=== PATIENT | male | born 1995 | race Caucasian/White ===

== ENCOUNTER 2020-04-05 14:08 | Observation (INO) | payer BC ==
[2020-04-05 14:42] LABS: CHLORIDE,CL 104 mEq/L (98-106); SODIUM,NA 141 mEq/L (136-145)
[2020-04-05] MEDS ORDERED: Lactated Ringers 1,000 ML IV ONE (15:00)
[2020-04-05] MEDS ORDERED: metroNIDAZOLE/Normal Saline 500 MG in Premix Bag 1 BAG IV ONE (15:15)
[2020-04-05] MEDS ORDERED: Iopamidol 755 Mg/ML 100 ML Bottle IVPUSH ONE (15:27)
[2020-04-05] MEDS ORDERED: Barium Sulfate Oral Susp 450 ML Bottle PO ONE ×2 (15:27)
[2020-04-05] MEDS ORDERED: Pantoprazole 40 MG Vial IVPUSH SCH ×2 (16:00→20:15)
[2020-04-05] MEDS ORDERED: cefTRIAXone 1 GM Vial IVPUSH ONE (16:53)
[2020-04-05] MEDS ORDERED: Ondansetron 4 MG/2 ML SDV IV PRN (20:04)
[2020-04-05] MEDS ORDERED: traMADol 50 MG Tab PO PRN (20:13)
[2020-04-05] MEDS: Nicotine 14 MG/24 Hr Patch TRDERM SCH (21:21)
[2020-04-05] MEDS: Lactated Ringers 1,000 ML IV SCH (21:21)
[2020-04-05] MEDS: Pantoprazole 40 MG Vial IVPUSH SCH (23:16)
[2020-04-06] MEDS: Lactated Ringers 1,000 ML IV SCH (06:32)
[2020-04-06 06:37] VITALS: BP 115/62
[2020-04-06 08:06] LABS: CHLORIDE,CL 106 mEq/L (98-106); SODIUM,NA 141 mEq/L (136-145)
--- NOTE | 2020-04-06 08:22 | PCM.DCSUM1 ---
Discharge Summary - Discharge Data Discharge Date: 04/06/20 Discharge Disposition: Home, Self-Care 01 Condition: Good - Referral to Home Health Primary Care Physician: PCP None - Discharge Diagnosis/Problem(s) (1) Hepatitis SNOMED Code(s): 915977726 ICD Code: K75.9 - INFLAMMATORY LIVER DISEASE, UNSPECIFIED Status: Acute (2) GERD (gastroesophageal reflux disease) SNOMED Code(s): 320556411 ICD Code: K21.9 - GASTRO-ESOPHAGEAL REFLUX DISEASE WITHOUT ESOPHAGITIS Status: Acute Qualifiers: Esophagitis presence: with esophagitis Qualified Code(s): K21.0 - Gastro-esophageal reflux disease with esophagitis - Patient Summary/Data Hospital Course: Rashaun is a 24 yo male who was admitted observation status for hematemesis and hepatitis. Presented to the clinic 04/05/2020 with c/o vomiting up blood. Reported he had been having maroon colored vomit for the past week. Had some abdominal tenderness on exam but no significant abdominal pain. Had decreased appetite and nausea for the past week as well. Lab workup revealed significantly elevated liver enzymes with ALT 2769, ALT 1043, and bilirubin of 6.8. Had CT of his abdomen/pelvis which did not have significant findings. Had mild amount of periportal edema, but otherwise negative. Hemoglobin was stable at 15.8. [facility] recommended serial hemoglobin and hepatitis workup. Patient had serial hemoglobins overnight which remained stable. Dropped from 15.8 to 14.4, likely dilutional. Patient had no further hematemesis during observation stay. Liver enzymes did improve overnight with ALT 2093, AST 750, and Bilirubin 5.2. VS remained stable. Hepatitis workup completed and pending at time of discharge. Patient will be discharged home on Protonix and carafate. He is advised to refrain from acetaminophen and NSAID use. Will give him Tramadol for pain, as he has been having ongoing back pain. Xray did reveal age indeterminant compression fracture of T8. He is advised to follow up in 1 week. Will repeat liver enzymes at that time and arrange for GI consultation once hepatitis panel is back. Patient tolerated general diet prior to discharge. Discharged home in satisfactory condition. - Patient Instructions Diet: Usual Diet as Tolerated, Drink 8-10+ Glasses/Day, No Alcoholic Beverages Activity: As Tolerated Notify Provider of: Fever, Increased Pain, Nausea and/or Vomiting - Discharge Plan *PRESCRIPTION DRUG MONITORING PROGRAM REVIEWED*: Yes *COPY OF PRESCRIPTION DRUG MONITORING REPORT IN PATIENT DIPTI: Yes Prescriptions/Med Rec: Sucralfate [Carafate] 1 gm PO QIDACANDBED 30 Days #120 tablet Pantoprazole Sodium [Protonix] 40 mg PO DAILY #30 tablet. traMADol [Ultram] 50 mg PO Q8H PRN #20 tablet PRN Reason: Pain Home Medications: Home Meds Pantoprazole Sodium [Protonix] 40 mg PO DAILY #30 tablet. 04/06/20 [Rx] Sucralfate [Carafate] 1 gm PO QIDACANDBED 30 Days #120 tablet 04/06/20 [Rx] traMADol [Ultram] 50 mg PO Q8H PRN #20 tablet 04/06/20 [Rx] Patient Handouts: Food Choices for Gastroesophageal Reflux Disease, Adult, Gastroesophageal Reflux Disease, Adult, [id number] - Discharge Summary/Plan Comment DC Time >30 min.: No - General Info Date of Service: 04/06/20 Admission Dx/Problem (Free Text: Hepatitis Hematemesis Functional Status: Reports: Pain Controlled, Tolerating Diet, Ambulating, Urinating. Denies: New Symptoms - Review of Systems General: Denies: Fever, Fatigue, Chills Pulmonary: Reports: No Symptoms Cardiovascular: Reports: No Symptoms Gastrointestinal: Reports: Abdominal Pain, Decreased Appetite, Nausea. Denies: Diarrhea, Hematochezia, Melena, Vomiting Genitourinary: Reports: No Symptoms Musculoskeletal: Reports: No Symptoms Skin: Reports: No Symptoms Neurological: Reports: No Symptoms Psychiatric: Reports: No Symptoms - Patient Data Vitals - Most Recent: Last Vital Signs Temp 98.4 F 04/06/20 04:00 Pulse 62 04/06/20 04:00 Resp 20 04/06/20 04:00 BP 115/62 04/06/20 04:00 Pulse Ox 97 04/06/20 04:00 Weight - Most Recent: 275 lb I&O - Last 24 hours: Intake & Output 04/05/20 04/06/20 04/06/20 22:59 06:59 14:59 Intake Total 300 918 Balance 300 918 Lab Results - Last 24 hrs: Laboratory Results - last 24 hr 04/05/20 04/05/20 04/05/20 Range/Units 00:00 14:19 14:19 WBC 8.0 (5.0-10.0) 10^3/uL RBC 5.27 (4.50-6.00) 10^6/uL Hgb 14.5 15.8 (14.0-18.0) g/dL Hct 42.0 45.6 (40.0-54.0) % MCV 86.5 (82.0-94.0) fL MCH 30.0 (27.0-32.0) pg MCHC 34.6 (33.0-38.0) g/dL RDW Coeff of Shahrzad 13.8 (11.0-15.0) % Plt Count 228 (150-400) 10^3/uL Neut % (Auto) 51.6 (35-85) % Lymph % (Auto) 37.3 (10-55) % [place] % (Auto) 8.3 (0-16) % Eos % (Auto) 2.1 (0-5) % Baso % (Auto) 0.7 (0-3) % Neut # (Auto) 4.14 (1.80-7.00) 10^3/uL Lymph # (Auto) 3.00 (1.00-4.80) 10^3/uL [place] # (Auto) 0.67 (0.00-0.80) 10^3/uL Eos # (Auto) 0.17 (0.00-0.45) 10^3/uL Baso # (Auto) 0.06 10^3/uL PT (9.7-12.3) SEC INR (0.92-1.18) Sodium 141 (136-145) mEq/L Potassium 4.0 (3.5-5.0) mEq/L Chloride 104 (98-106) mEq/L Carbon Dioxide 28 (21-32) mmol/L BUN 12 (7-18) mg/dL Creatinine 1.1 (0.7-1.3) mg/dL Est Cr Clr Drug Dosing TNP Estimated GFR (MDRD) > 60 (>=60) mL/min Glucose 100 H (75-99) mg/dL Calcium 8.9 (8.4-10.1) mg/dL Total Bilirubin 6.7 H (0.0-1.0) mg/dL AST 1043 H* (15-37) U/L ALT 2769 H* (12-78) U/L Alkaline Phosphatase 128 H (46-116) U/L C-Reactive Protein 1.5 H (0.2-0.8) mg/dL Total Protein 7.3 (6.4-8.2) g/dL Albumin 3.8 (3.4-5.0) g/dL Amylase 39 (25-115) U/L Lipase 101 (73-393) U/L Urine Color (YELLOW) Urine Appearance (CLEAR) Urine pH (4.5-8.0) Ur Specific [place] (1.003-1.020) Urine Protein (NEGATIVE) mg/dL Urine Glucose (UA) (NEGATIVE) mg/dL Urine Ketones (NEGATIVE) mg/dL Urine Occult Blood (NEGATIVE) Urine Nitrite (NEGATIVE) Urine Bilirubin (NEGATIVE) Urine Urobilinogen (0.2-1.0) EU/dL Ur Leukocyte Esterase (NEGATIVE) Urine RBC (0-5) /HPF Urine WBC (0-5) /HPF Ur Epithelial Cells (NOT SEEN) /HPF Amorphous Sediment (NOT SEEN) /HPF Urine Mucus (NOT SEEN) /HPF 04/05/20 04/05/20 04/05/20 Range/Units 14:19 18:38 18:38 WBC (5.0-10.0) 10^3/uL RBC (4.50-6.00) 10^6/uL Hgb 14.5 (14.0-18.0) g/dL Hct (40.0-54.0) % MCV (82.0-94.0) fL MCH (27.0-32.0) pg MCHC (33.0-38.0) g/dL RDW Coeff of Shahrzad (11.0-15.0) % Plt Count (150-400) 10^3/uL Neut % (Auto) (35-85) % Lymph % (Auto) (10-55) % [place] % (Auto) (0-16) % Eos % (Auto) (0-5) % Baso % (Auto) (0-3) % Neut # (Auto) (1.80-7.00) 10^3/uL Lymph # (Auto) (1.00-4.80) 10^3/uL [place] # (Auto) (0.00-0.80) 10^3/uL Eos # (Auto) (0.00-0.45) 10^3/uL Baso # (Auto) 10^3/uL PT 12.0 (9.7-12.3) SEC INR 1.19 H (0.92-1.18) Sodium (136-145) mEq/L Potassium (3.5-5.0) mEq/L Chloride (98-106) mEq/L Carbon Dioxide (21-32) mmol/L BUN (7-18) mg/dL Creatinine (0.7-1.3) mg/dL Est Cr Clr Drug Dosing Estimated GFR (MDRD) (>=60) mL/min Glucose (75-99) mg/dL Calcium (8.4-10.1) mg/dL Total Bilirubin (0.0-1.0) mg/dL AST (15-37) U/L ALT (12-78) U/L Alkaline Phosphatase (46-116) U/L C-Reactive Protein (0.2-0.8) mg/dL Total Protein (6.4-8.2) g/dL Albumin (3.4-5.0) g/dL Amylase (25-115) U/L Lipase (73-393) U/L Urine Color Dark yellow (YELLOW) Urine Appearance Clear (CLEAR) Urine pH 5.0 (4.5-8.0) Ur Specific [place] 1.025 H (1.003-1.020) Urine Protein Trace H (NEGATIVE) mg/dL Urine Glucose (UA) 100 H (NEGATIVE) mg/dL Urine Ketones 15 H (NEGATIVE) mg/dL Urine Occult Blood Negative (NEGATIVE) Urine Nitrite Negative (NEGATIVE) Urine Bilirubin Large H (NEGATIVE) Urine Urobilinogen >=8.0 H (0.2-1.0) EU/dL Ur Leukocyte Esterase Negative (NEGATIVE) Urine RBC Not seen (0-5) /HPF Urine WBC Not seen (0-5) /HPF Ur Epithelial Cells Occasional H (NOT SEEN) /HPF Amorphous Sediment Few H (NOT SEEN) /HPF Urine Mucus Occasional H (NOT SEEN) /HPF 04/06/20 04/06/20 04/06/20 Range/Units 05:11 05:11 05:11 WBC 6.3 (5.0-10.0) 10^3/uL RBC 4.90 (4.50-6.00) 10^6/uL Hgb 14.4 (14.0-18.0) g/dL Hct 43.1 (40.0-54.0) % MCV 88.0 (82.0-94.0) fL MCH 29.4 (27.0-32.0) pg MCHC 33.4 (33.0-38.0) g/dL RDW Coeff of Shahrzad 14.1 (11.0-15.0) % Plt Count 206 (150-400) 10^3/uL Neut % (Auto) 47.9 (35-85) % Lymph % (Auto) 35.5 (10-55) % [place] % (Auto) 11.9 (0-16) % Eos % (Auto) 4.1 (0-5) % Baso % (Auto) 0.6 (0-3) % Neut # (Auto) 3.02 (1.80-7.00) 10^3/uL Lymph # (Auto) 2.24 (1.00-4.80) 10^3/uL [place] # (Auto) 0.75 (0.00-0.80) 10^3/uL Eos # (Auto) 0.26 (0.00-0.45) 10^3/uL Baso # (Auto) 0.04 10^3/uL PT 11.7 (9.7-12.3) SEC INR 1.16 (0.92-1.18) Sodium 141 (136-145) mEq/L Potassium 3.8 (3.5-5.0) mEq/L Chloride 106 (98-106) mEq/L Carbon Dioxide 27 (21-32) mmol/L BUN 8 (7-18) mg/dL Creatinine 1.0 (0.7-1.3) mg/dL Est Cr Clr Drug Dosing 139.84 Estimated GFR (MDRD) > 60 (>=60) mL/min Glucose 95 (75-99) mg/dL Calcium 8.2 L (8.4-10.1) mg/dL Total Bilirubin 5.2 H (0.0-1.0) mg/dL AST 750 H* (15-37) U/L ALT 2093 H* (12-78) U/L Alkaline Phosphatase 107 (46-116) U/L C-Reactive Protein 1.2 H (0.2-0.8) mg/dL Total Protein 6.1 L (6.4-8.2) g/dL Albumin 3.0 L (3.4-5.0) g/dL Amylase (25-115) U/L Lipase (73-393) U/L Urine Color (YELLOW) Urine Appearance (CLEAR) Urine pH (4.5-8.0) Ur Specific [place] (1.003-1.020) Urine Protein (NEGATIVE) mg/dL Urine Glucose (UA) (NEGATIVE) mg/dL Urine Ketones (NEGATIVE) mg/dL Urine Occult Blood (NEGATIVE) Urine Nitrite (NEGATIVE) Urine Bilirubin (NEGATIVE) Urine Urobilinogen (0.2-1.0) EU/dL Ur Leukocyte Esterase (NEGATIVE) Urine RBC (0-5) /HPF Urine WBC (0-5) /HPF Ur Epithelial Cells (NOT SEEN) /HPF Amorphous Sediment (NOT SEEN) /HPF Urine Mucus (NOT SEEN) /HPF Med Orders - Current: Current Medications Lactated Ringer's (Ringers, Lactated) 1,000 mls @ 100 mls/hr IV ASDIRECTED [facility] Last Admin: 04/06/20 06:32 Dose: 100 mls/hr Documented by: Nicotine (Habitrol) 14 mg TRDERM DAILY [facility] Last Admin: 04/05/20 21:21 Dose: Not Given Documented by: Ondansetron HCl (Zofran) 4 mg IV Q6H PRN PRN Reason: Nausea/Vomiting Pantoprazole Sodium (Protonix Iv) 40 mg IVPUSH BID [facility] Last Admin: 04/05/20 23:16 Dose: 40 mg Documented by: Tramadol HCl (Ultram) 50 mg PO Q8H PRN PRN Reason: Pain Last Admin: 04/05/20 21:19 Dose: 50 mg Documented by: Discontinued Medications Barium Sulfate (Readi-Cat 2) 450 ml PO ONETIME ONE Stop: 04/05/20 15:28 Last Admin: 04/05/20 15:56 Dose: Not Given Documented by: Barium Sulfate (Readi-Cat 2) 900 ml PO ONETIME ONE Stop: 04/05/20 15:28 Last Admin: 04/05/20 17:34 Dose: 900 ml Documented by: Ceftriaxone Sodium (Rocephin) 1 gm IVPUSH ONETIME ONE Stop: 04/05/20 16:54 Last Admin: 04/05/20 17:01 Dose: 1 gm Documented by: Lactated Ringer's (Ringers, Lactated) 1,000 mls @ 999 mls/hr IV ONETIME ONE Stop: 04/05/20 16:00 Last Infusion: 04/05/20 15:13 Dose: 500 mls/hr Documented by: Metronidazole 500 mg/ Premix 100 mls @ 100 mls/hr IV ONETIME ONE Stop: 04/05/20 16:14 Last Admin: 04/05/20 15:31 Dose: 100 mls/hr Documented by: Iopamidol ([id number] (76%)) 100 ml IVPUSH ONETIME ONE Stop: 04/05/20 15:28 Last Admin: 04/05/20 17:33 Dose: 100 ml Documented by: Pantoprazole Sodium (Protonix Iv) 40 mg IVPUSH Q24H [facility] Last Admin: 04/05/20 15:31 Dose: 40 mg Documented by: Pantoprazole Sodium (Protonix Iv) 40 mg IVPUSH Q12H [facility] Last Admin: 04/05/20 23:35 Dose: Not Given Documented by: - Exam General: Reports: Alert, Oriented, No Acute Distress Neck: Reports: Supple Lungs: Reports: Clear to Auscultation, Normal Respiratory Effort Cardiovascular: Reports: Regular Rate, Regular Rhythm GI/Abdominal Exam: Normal Bowel Sounds, Soft, Non-Tender, No Organomegaly, No Distention. No: Guarding, Rigid, Rebound, Hepatomegaly Extremities: Normal Inspection, Normal Range of Motion, Non-Tender, No Pedal Edema, Normal Capillary Refill Skin: Reports: Other (jaundice) Neurological: Reports: No New Focal Deficit Psy/Mental Status: Reports: Alert, Normal Affect, Normal Mood *Q Meaningful Use (DIS) - VTE *Q VTE Anticoagulation Contraindications: Med/TX Not Indicated/Need
[2020-04-06] MEDS: Pantoprazole 40 MG Vial IVPUSH SCH (08:26)
[2020-04-06] MEDS: Nicotine 14 MG/24 Hr Patch TRDERM SCH (08:26)
[2020-04-06 08:38] VITALS: PULSE 55
== END 2020-04-06 09:15 | disposition home or self-care (01) ==
LOC: CC.MS 14:08 → CC.FCMC 14:08 → UNDOADMOB 19:38 → CC.MS 19:38
PROVIDERS: ADMIT Nurse Practitioner Family; ATTEND Family Medicine
DX: K75.9 Inflammatory liver disease, unspecified (principal); S22.060A Wedge compression fracture of T7-T8 vertebra, initial encounter for closed fracture; K21.0 Gastro-esophageal reflux disease with esophagitis; G89.29 Other chronic pain; K92.0 Hematemesis; F17.200 Nicotine dependence, unspecified, uncomplicated; Z79.899 Other long term (current) drug therapy; X58.XXXA Exposure to other specified factors, initial encounter
CPT/HCPCS: 36415; 72080; 74177; 80053; 80074; 80307; 81001; 82150; 83690; 85014; 85018; 85025; 85610; 86140; 87389; 96361; 96365; 96375; 96376; A9270-GY; C9113; G0378; J0696; J3490; J7120; Q9967